=== PATIENT | male | born 1985 | race Caucasian/White ===

== ENCOUNTER 2020-04-30 12:24 | Inpatient (IN) | payer MEDICAID, OTHER ==
[2020-04-30 13:53] LABS: Amphetamine Screen,Urine Not Detected (NotDetected); Barbiturate Screen,Urine Not Detected (NotDetected); Benzodiazepines Screen,Urine Detected (NotDetected); Cocaine Screen,Urine Not Detected (NotDetected); Methadone Screen, Urine Not Detected (NotDetected); Opiate Screen,Urine Not Detected (NotDetected); Oxycodone Screen, Urine Not Detected (NotDetected); Phencyclidine Screen,Urine Not Detected (NotDetected); Tricyclic Antidepressant,Urine Not Detected (NotDetected); Urn Cannabinoid Scrn Detected (NotDetected)
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
[2020-04-30] MEDS ORDERED: NICOTINE 21MG/24HR PATCH TRANSDERM STA (18:20)
[2020-04-30] MEDS ORDERED: LORazepam 1 MG TAB PO PRN (20:29)
[2020-04-30] MEDS ORDERED: MAG HYDROX/AL HYDROX/SIMETH 30 ML CUP PO PRN (20:29)
[2020-04-30] MEDS ORDERED: haloperidoL 5 MG TAB PO PRN (20:32)
[2020-04-30] MEDS ORDERED: HALOPERIDOL LACTATE 5 MG/ML 1 ML VIAL IM PRN (20:32)
[2020-04-30] MEDS ORDERED: LORazepam 2 MG/ML INJ IM PRN (20:32)
[2020-04-30] MEDS: ACETAMINOPHEN TAB 325 MG TAB PO PRN (22:16)
[2020-04-30] MEDS: CYCLOBENZAPRINE 5 MG TAB PO PRN (22:17)
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
[2020-05-01] MEDS: PANTOPRAZOLE 40 MG TABLET PO SCH (08:24)
[2020-05-01] MEDS: NICOTINE 14MG/24HR PATCH TRANSDERM SCH ×2 (08:24→13:06)
[2020-05-01] MEDS ORDERED: diphenhydrAMINE 25 MG CAP PO PRN (10:19)
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
[2020-05-01] MEDS: LITHIUM CARBONATE 300 MG CAP PO SCH ×2 (11:03→20:25)
[2020-05-01] MEDS: CYCLOBENZAPRINE 5 MG TAB PO PRN ×2 (11:43→17:04)
[2020-05-01] MEDS: ACETAMINOPHEN TAB 325 MG TAB PO PRN ×3 (11:43→21:27)
[2020-05-01 17:49] LABS: Basophils % (A) 0 %; Eosinophils # (A) 0.2 k/uL (0-0.7); Eosinophils % (A) 2 %; HGB 16.9 gm/dL (13.0-17.5); Lymphocytes # (A) 2.7 k/uL (1.0-4.8); Lymphocytes % (A) 32 %; MCH 32.1 pg (25.0-35.0); MCHC 33.8 g/dL (31.0-37.0); MCV 94.9 fL (80.0-100.0); Monocytes # (A) 0.5 k/uL (0-1.0); Monocytes % (A) 7 %; Neutrophils # (A) 4.7 k/uL (1.3-7.7); Neutrophils % (A) 57 %; Platelet Count 307 k/uL (150-450); RBC 5.27 m/uL (4.30-5.90); RDW 12.5 % (11.5-15.5); WBC 8.2 k/uL (3.8-10.6)
[2020-05-01] MEDS: IBUPROFEN 600 MG TAB PO PRN (17:49)
[2020-05-01 18:05] LABS: ALT 17 U/L (4-49); AST 24 U/L (17-59); African American GFR (CKD) >90 (>60 ml/min/1.73 sqM); Albumin 4.8 g/dL (3.5-5.0); Alkaline Phosphatase 72 U/L (38-126); Anion Gap 7 mmol/L; Blood Urea Nitrogen 15 mg/dL (9-20); Carbon Dioxide 33 mmol/L (22-30); Chloride 99 mmol/L (98-107); Glucose 50 mg/dL (74-99); Non-African American GFR(CKD) >90 (>60 ml/min/1.73 sqM); Potassium 4.6 mmol/L (3.5-5.1); Sodium 139 mmol/L (137-145); Total Bilirubin 0.3 mg/dL (0.2-1.3); Total Protein 7.8 g/dL (6.3-8.2)
[2020-05-01 18:21] LABS: Glucose,Whole Blood 118 mg/dL (75-99)
[2020-05-01] MEDS: MAGNESIUM HYDROXIDE 2,400 MG/10 ML CUP PO PRN (18:46)
[2020-05-01 20:11] LABS: Glucose,Whole Blood 100 mg/dL (75-99)
[2020-05-01] MEDS: traZODone HCL 50 MG TAB PO SCH (20:25)
[2020-05-02 02:04] LABS: Glucose,Whole Blood 88 mg/dL (75-99)
[2020-05-02 08:00] LABS: Glucose,Whole Blood 87 mg/dL (75-99)
[2020-05-02] MEDS: NICOTINE 14MG/24HR PATCH TRANSDERM SCH (08:18)
[2020-05-02] MEDS: PANTOPRAZOLE 40 MG TABLET PO SCH (08:18)
[2020-05-02] MEDS: LITHIUM CARBONATE 300 MG CAP PO SCH (08:18)
[2020-05-02] MEDS: IBUPROFEN 600 MG TAB PO PRN ×2 (08:20→21:01)
[2020-05-02] MEDS: CYCLOBENZAPRINE 5 MG TAB PO PRN ×3 (08:20→23:26)
--- NOTE | 2020-05-02 10:23 | P.PN ---
Progress Note - Text Progress Note Date: 05/02/20 Interval History: Patient was seen attending group this morning and was directable and agreeable to speak with freelance copywriter in the office. Patient continues to have rapid speech and is hyperverbal. He is more goal oriented today and his thought process. He spoke about recently getting a chameleon at home and needing to take care of it and also spoke more about his family today. Patient continues to have flight of ideas however this has been improving mildly. He states that he was able to sleep fairly last night however claims that he may have "overslept". He states that he took Ativan, Haldol, Benadryl and his trazodone. Inspector Of Weights And Measures spoke with patient about all the medications and to try and only take trazodone for his sleep as this may be causing oversedation. Patient verbally understood and agreed. He states that his mood has been improving and feels a bit better today. He claims that he does have some anxiety at this time however wants to have his Ativan when necessary dose decreased. He states that he has been going to group and participating as best as he can. He admits to a fair appetite. At this time patient denies any suicidal or homical ideations, intent or plan. Patient denies any auditory, visual hallucinations. Patient denies any side effects from the medications and has been compliant with meds. Mental Status Exam: General Appearance: Patient appears to have an intense stare, facial hair/carrasquillo, stated age is alert, more directable today. Patient appears to have fair hygiene and grooming. Behavior: Patient is seated without any agitated behavior. More directable today Speech: Patient's speech is pressured and hyperverbal, improving mildly. Mood/Affect: Patient reports their mood is "better", affect is congruent Suicidality/Homicidality: Patient denies having any homicidal ideation intent or plan. Denies any suicidal ideations intent or plan Perceptions: Patient denies any visual hallucinations and denies any auditory hallucinations Though content/process: Rambles, tangential/circumstantial, more goal oriented today. Flight of ideas and racing thoughts, improving mildly. Grandiose, improving mildly Memory and concentration: AOX3, grossly intact for the purposes of this session Judgment and insight: poor, improving mildly Assessment Bipolar disorder type I, current manic episode without psychotic features Cannabis use disorder Benzodiazepine abuse Nicotine dependence Plan: -Patient continues to meet criteria for inpatient psychiatric admission for symptom stabilization and safety. Patient has signed adult voluntary form and medication consent and was placed in patient's chart. -Medications: Increase lithium to 450 mg twice a day for mood stabilization. Continue trazodone 50 mg daily at bedtime for insomnia/mood. Discontinued Benadryl. -will need to check a Dell level prior to d/c -When necessary Ativan and Haldol for agitation/aggression. -NRT - nicotine patch -SW on board for discharge planning. Encouraged the patient to participate in milieu.
[2020-05-02] MEDS: LORazepam 0.5 MG TAB PO PRN ×3 (10:27→23:26)
[2020-05-02 11:15] LABS: Hemoglobin A1C 5.3 % (4.0-6.0)
[2020-05-02] MEDS: LITHIUM CARBONATE 150 MG CAP PO SCH (20:59)
[2020-05-02] MEDS: traZODone HCL 50 MG TAB PO SCH (20:59)
[2020-05-02 22:03] LABS: Glucose,Whole Blood 104 mg/dL (75-99)
[2020-05-03 02:15] LABS: Glucose,Whole Blood 93 mg/dL (75-99)
[2020-05-03 07:52] LABS: Glucose,Whole Blood 113 mg/dL (75-99)
--- NOTE | 2020-05-03 09:19 | P.PN ---
Progress Note - Text Progress Note Date: 05/03/20 Interval History: Patient was seen wandering the hallways this morning and was directable and ag reeable to speak with administrative underwriter in the office. Patient continues to have rapid speech and is hyperverbal however is improving mildly. She at times continues to be grandiose and spoke about him and his family living in a "$5 million house with 3 caro". He is more goal oriented today and his thought process and is more easier to interrupt during conversation. He claims that he has been speaking with his family over the phone. Patient continues to have flight of ideas however this has been improving mildly. He claims that he slept approximately 10 hours last night however states that he did not rest well and had nightmares. Patient was agreeable to be started on Seroquel instead for sleep. He states that his mood has been improving and feels a bit better today. He claims that he does have some anxiety at this time and asked to have his Ativan dose increased back to 1 mg 3 times a day when necessary. He states that he has been going to group and participating as best as he can. He admits to a fair appetite. At this time patient denies any suicidal or homical ideations, intent or plan. Patient denies any auditory, visual hallucinations. Patient denies any side effects from the medications and has been compliant with meds. Mental Status Exam: General Appearance: Patient appears to have an intense stare, facial hair/carrasquillo, stated age is alert, more directable today. Patient appears to have fair hygiene and grooming. Behavior: Patient is seated without any agitated behavior. More directable today Speech: Patient's speech is pressured and hyperverbal, improving mildly. Mood/Affect: Patient reports their mood is "good", affect is congruent Suicidality/Homicidality: Patient denies having any homicidal ideation intent or plan. Denies any suicidal ideations intent or plan Perceptions: Patient denies any visual hallucinations and denies any auditory hallucinations Though content/process: Rambles, tangential/circumstantial, more goal oriented today. Flight of ideas and racing thoughts, improving mildly. Grandiose, improving mildly Memory and concentration: AOX3, grossly intact for the purposes of this session Judgment and insight: improving mildly Assessment Bipolar disorder type I, current manic episode without psychotic features Cannabis use disorder Benzodiazepine abuse Nicotine dependence Plan: -Patient continues to meet criteria for inpatient psychiatric admission for symptom stabilization and safety. Patient has signed adult voluntary form and medication consent and was placed in patient's chart. -Medications: Continue with lithium to 450 mg twice a day for mood stabilization. Discontinue trazodone and replaced with Seroquel 50 mg daily at bedtime for mood stabilization/insomnia. -lithium level tomorrow morning. -When necessary Ativan and Haldol for agitation/aggression. -NRT - nicotine patch -SW on board for discharge planning. Encouraged the patient to participate in milieu. Likely discharge either tomorrow or Thursday depending if patient improves psychiatrically. lawn care worker to contact patient's family today.
[2020-05-03] MEDS: NICOTINE 14MG/24HR PATCH TRANSDERM SCH (09:30)
[2020-05-03] MEDS: PANTOPRAZOLE 40 MG TABLET PO SCH (09:30)
[2020-05-03] MEDS: LITHIUM CARBONATE 150 MG CAP PO SCH ×2 (09:30→21:01)
[2020-05-03] MEDS: LORazepam 1 MG TAB PO PRN ×2 (09:31→17:24)
[2020-05-03] MEDS: IBUPROFEN 800 MG TAB PO PRN (09:31)
[2020-05-03] MEDS: SENNOSIDES-DOCUSATE SODIUM 1 EACH TAB PO SCH ×2 (09:33→21:01)
[2020-05-03 10:20] VITALS: RESP 20
[2020-05-03] MEDS: CYCLOBENZAPRINE 5 MG TAB PO PRN ×2 (10:45→21:03)
[2020-05-03] MEDS ORDERED: QUEtiapine 50 MG TAB PO SCH (21:00)
[2020-05-04] MEDS: IBUPROFEN 800 MG TAB PO PRN ×2 (00:51→07:51)
[2020-05-04] MEDS: LORazepam 1 MG TAB PO PRN ×2 (00:51→07:51)
[2020-05-04] MEDS: ACETAMINOPHEN TAB 325 MG TAB PO PRN (01:42)
[2020-05-04 07:48] VITALS: BP 118/78; PULSE 120
[2020-05-04] MEDS: SENNOSIDES-DOCUSATE SODIUM 1 EACH TAB PO SCH (07:49)
[2020-05-04] MEDS: PANTOPRAZOLE 40 MG TABLET PO SCH (07:49)
[2020-05-04] MEDS: NICOTINE 14MG/24HR PATCH TRANSDERM SCH (07:49)
[2020-05-04] MEDS: MAGNESIUM HYDROXIDE 2,400 MG/10 ML CUP PO PRN (07:51)
[2020-05-04] MEDS: LITHIUM CARBONATE 150 MG CAP PO SCH (10:19)
[2020-05-04 11:05] VITALS: TEMP 98.3
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
[2020-05-04] MEDS: CYCLOBENZAPRINE 5 MG TAB PO PRN (12:33)
== END 2020-05-04 14:14 | disposition home or self-care (01) | DRG 885 ==
LOC: EC 12:24 → 3MHU 19:53
PROVIDERS: ADMIT Psychiatry & Neurology Psychiatry; ATTEND Psychiatry & Neurology Psychiatry
DX: F31.13 Bipolar disorder, current episode manic without psychotic features, severe (principal); F13.10 Sedative, hypnotic or anxiolytic abuse, uncomplicated; Z20.822 Contact with and (suspected) exposure to COVID-19; F12.10 Cannabis abuse, uncomplicated; G47.00 Insomnia, unspecified; M40.209 Unspecified kyphosis, site unspecified; J45.909 Unspecified asthma, uncomplicated; K21.9 Gastro-esophageal reflux disease without esophagitis; F17.210 Nicotine dependence, cigarettes, uncomplicated; Z71.6 Tobacco abuse counseling; Z79.899 Other long term (current) drug therapy; Z91.410 Personal history of adult physical and sexual abuse
CPT/HCPCS: 80053; 80178; 80306; 82075; 83036; 84443; 85025; 87635; 99284